=== PATIENT | female | born 1975 | race Caucasian/White ===

== ENCOUNTER 2016-09-08 13:44 | Outpatient (RCR) | payer OTHER | END 2016-09-10 | LOC: M CR 13:44 | PROVIDERS: ATTEND Physician Assistant Medical | DX: Z51.89 Encounter for other specified aftercare (principal); Z98.1 Arthrodesis status ==

== ENCOUNTER 2016-09-22 14:00 | Outpatient (RCR) | payer OTHER | END 2016-10-11 | LOC: M CR 14:00 | PROVIDERS: ATTEND Physician Assistant Medical | DX: Z51.89 Encounter for other specified aftercare (principal); Z98.1 Arthrodesis status ==

== ENCOUNTER 2016-10-12 08:26 | Outpatient (RCR) | payer OTHER | END 2016-11-11 | LOC: M CR 08:26 | PROVIDERS: ATTEND Physician Assistant Medical | DX: Z51.89 Encounter for other specified aftercare (principal); Z98.1 Arthrodesis status ==